=== PATIENT | male | born 1970 | race Caucasian/White ===

== ENCOUNTER → 2018-03-01 | Outpatient (CLI) | payer OTHER ==
[~2018-03-01] MED LIST: ATOR40TA69 PO; CELE200 PO; DIAZ10TA4 PO; GABA-318 PO; LORA-868 PO; NARA1TAB2 PO; OXYC10TA48 PO; OXYC9CAP PO
== END | disposition home or self-care (01) ==
LOC: OIH 10:30
PROVIDERS: ATTEND Family Medicine
DX: M19.011 Primary osteoarthritis, right shoulder (principal)
CPT/HCPCS: 73030

== ENCOUNTER → 2018-11-22 | Outpatient (CLI) | payer OTHER ==
[~2018-11-22] MED LIST changes: -GABA-318 PO; +GABA600T10 PO
== END | disposition home or self-care (01) ==
LOC: OIH 16:43
PROVIDERS: ATTEND Family Medicine
DX: M25.511 Pain in right shoulder (principal)
CPT/HCPCS: 73030

== ENCOUNTER → 2019-08-11 | Outpatient (CLI) | payer OTHER | END | disposition home or self-care (01) | LOC: OIH 15:14 | PROVIDERS: ATTEND Family Medicine | DX: M19.011 Primary osteoarthritis, right shoulder (principal); M16.12 Unilateral primary osteoarthritis, left hip | CPT/HCPCS: 73030; 73502 ==

== ENCOUNTER 2020-06-24 17:43 | Emergency (ER) | payer OTHER ==
[2020-06-24] MEDS ORDERED: CALCIUM CHLORIDE 100 MG/ML 10 ML SYG IVP ONE (17:44)
[2020-06-24] MEDS ORDERED: DEXTROSE 50%-WATER 50 ML DISP.SYRIN IV ONE (17:44)
[2020-06-24] MEDS ORDERED: SODIUM BICARB 8.4% 50ML SYRINGE IVP ONE (17:44)
[2020-06-24] MEDS ORDERED: NALOXONE HCL 0.4 MG/1 ML ML IVP ONE (17:44)
== END 2020-06-24 17:55 | disposition expired ==
LOC: EDH 17:43
DX: I46.9 Cardiac arrest, cause unspecified (principal); M19.90 Unspecified osteoarthritis, unspecified site; Z88.0 Allergy status to penicillin; Z88.6 Allergy status to analgesic agent; Z88.8 Allergy status to other drugs, medicaments and biological substances
CPT/HCPCS: 92950; 99291; J2310; J3490 ×2; J7070